=== PATIENT | female | born 2000 | race Caucasian/White ===

== ENCOUNTER 2022-11-06 14:23 | Emergency (ER) | payer BC, SELFPAY ==
[2022-11-06 14:26] VITALS: BP 112/79; PULSE 130; RESP 21; TEMP 36.4; O2SAT 99; BMI 21.1
--- NOTE | 2022-11-06 15:11 | ED_ITS ---
HPI - Nausea/Vomiting/Diarrhea General Chief complaint: Nausea/Vomiting Stated complaint: Food poisoning, vomiting Time Seen by Provider: 11/06/22 15:03 History of Present Illness HPI Narrative: This 22-year-old female comes in with report of vomiting and diarrhea that began this morning. She thinks that she ate something that was toxic in her meal last night which she ordered from [employer]. She did not have any symptoms after taking the pizza last night. Symptoms started this morning. Her boyfriend also has similar symptoms. She does not report any blood in the toilet. She has not had any fevers. She arrives with normal vital signs Septra pulse is increased. Related Data Home Medications Medication Instructions Recorded Confirmed escitalopram oxalate 5 mg tablet 15 mg PO QDAY 07/17/22 07/17/22 spironolactone 100 mg tablet 100 mg PO QDAY 07/17/22 07/17/22 tretinoin 0.05 % topical cream g topical 07/17/22 07/17/22 Previous Rx's Medication Instructions Recorded ondansetron 4 mg disintegrating 4 mg PO Q6H #20 tabs 11/06/22 tablet Allergies Allergy/AdvReac Type Severity Reaction Status Date / Time No Known Drug Allergies Allergy Verified 11/06/22 14:45 Review of Systems Status of ROS: Reports: 10 or more systems reviewed and unremarkable except as noted in History and below Narrative: Constitutional: No fevers, no weight gain or loss. Eyes: No discharge. No vision changes. HENT: No congestion, no sore throat, no ear pain. Cardiovascular: No chest pain, no palpitations. Respiratory: No shortness of breath, no wheezes, no cough. Gastrointestinal: Vomiting and diarrhea. Diffuse abdominal pain. Genitourinary: No dysuria, no hematuria. Musculoskeletal: Normal range of motion. Skin: No rashes, no pruritis. Neurological: No dizziness, weakness, sensory change, speech change. Endo/Heme/Allergies: No bruising or bleeding. No polydipsia. Pysch: no suicidality, no anxiety, no insomnia. All other systems reviewed and are negative. PFSH PFS Social History Smoking Status: Never smoker Exam Narrative: Exam Narrative: Constitutional: Well-developed, well-nourished, no acute distress. HEENT: Normocephalic, atraumatic. Neck: Normal range of motion. Nontender. Supple. Heart: Regular. No murmurs. Tachycardia. Intact distal pulses. Lungs: Clear to auscultation. No chest discomfort. No wheezes, rhonchi, or rales. Abdomen: Normal bowel sounds. Nontender. No rebound tenderness. Genitalia: Deferred. Back: No midline tenderness. Normal range of motion. Extremities: Normal range of motion. No injury. Skin: Intact. No rash. Warm. No erythema or pallor. Neurologic: No altered sensation. No weakness. Alert and oriented. Psychiatric: No suicidality. No anxiety or depression. No insomnia. Nursing notes and vitals signs are reviewed. Const: Vital Signs, click to edit/add: Vital Signs - 24 hr 11/06/22 14:26 Temperature 97.5 F L Pulse Rate [Pulse Oximeter] 130 H Respiratory Rate 21 Blood Pressure [Ri ght Upper Arm] 112/79 Pulse Oximetry 99 Oxygen Delivery Me thod Room Air Course Vital Signs Vital signs: Initial Vital Signs Temperature 97.5 F L 11/06/22 14:26 Temperature Source Oral 11/06/22 14:26 Pulse Rate 130 H 11/06/22 14:26 Pulse Rhythm 11/06/22 14:26 Pulse Strength 3+ Normal 11/06/22 14:26 Respiratory Rate 21 11/06/22 14:26 Blood Pressure 112/79 11/06/22 14:26 Blood Pressure Mean 90 11/06/22 14:26 Pulse Oximetry 99 11/06/22 14:26 Oxygen Delivery Method 11/06/22 14:26 Vital Signs Temperature 97.5 F L 11/06/22 14:26 Pulse Rate 130 H 11/06/22 14:26 Respiratory Rate 21 11/06/22 14:26 Blood Pressure 112/79 11/06/22 14:26 Pulse Oximetry 99 11/06/22 14:26 Oxygen Delivery Method 11/06/22 14:26 Temperature 97.5 F L 11/06/22 14:26 Pulse Rate 130 H 11/06/22 14:26 Respiratory Rate 21 11/06/22 14:26 Blood Pressure 112/79 11/06/22 14:26 Pulse Oximetry 99 11/06/22 14:26 Oxygen Delivery Method 11/06/22 14:26 MDM - Nausea/Vomiting/Diarrhea MDM Narrative Medical decision making narrative: This patient comes in with nausea, vomiting, and diarrhea that started this morning. She arrives with normal vital signs except for an increased heart rate. An IV was established where she received a L of normal saline and 4 mg of Zofran. This brought relief to her nausea and vomiting. She is feeling better. Lab results returned with reassuring findings. At the time of discharge the patient appears safe for outpatient management. The treatment plan is reviewed along with written and verbal return precautions. Reasons to return and the importance of close followup were also reviewed. Lab Data Labs: Lab Results 11/06/22 Range/Units 15:00 WBC 7.92 (4.50-11.00) K/uL RBC 4.92 (4.00-5.20) m/uL Hgb 12.9 (12.0-16.0) gm/dL Hct 39.0 (33.0-51.0) % MCV 79 L (80-100) fL MCH 26 (26-34) pg MCHC 33 (32-36) gm/dL RDW Coeff of Yadira 16.0 H (11.5-15.5) % Plt Count 310 (140-440) K/uL Neut % (Auto) 92.3 H (42.0-72.0) % Lymph % (Auto) 2.8 L (20-44) % [place] % (Auto) 4.2 (0.0-11.0) % Eos % (Auto) 0.5 (0.0-7.0) % Baso % (Auto) 0.1 (0.0-3.0) % Neut # (Auto) 7.30 H (1.7-7.0) K/uL Lymph # (Auto) 0.20 L (0.90-2.90) K/uL [place] # (Auto) 0.30 (0.00-0.90) K/UL Eos # (Auto) 0.04 (0.00-0.50) K/uL Baso # (Auto) 0.01 (0.00-0.30) K/uL Discharge Plan Discharge Clinical Impression: Gastroenteritis Patient Disposition: Home, Self-Care Condition: Improved Additional Instructions: Increase diet as tolerated. Use [id number] Imodium as needed and directed. Use prescription medicine called Zofran as needed and directed for nausea and vomiting. Follow up with MD or return if worsening. Prescriptions: New ondansetron 4 mg tablet,disintegrating 4 mg PO Q6H Qty: 20 0RF No Action tretinoin 0.05 % cream topical Label Comments: APPLY PEA SIZED AMOUNT TO FACE NIGHTLY spironolactone 100 mg tablet 100 mg PO QDAY Label Comments: TAKE 1 TABLET BY MOUTH EVERY DAY escitalopram oxalate 5 mg tablet 15 mg PO QDAY Follow Up/Referrals: Provider,Not a Local [Primary Care Provider] - Stand Alone Forms: [employer] Info Instructions
[2022-11-06] MEDS: ONDANSETRON 2 MG/ML inj 4 MG IVP (15:36)
[2022-11-06] MEDS: 0.9 % SODIUM CHLORIDE 1000 ml 1,000 ML IV (15:36)
[2022-11-06 15:46] LABS: Basophils Absolute Auto 0.01 K/uL (0.00-0.30); Basophils Percent Auto 0.1 % (0.0-3.0); Eosinophils Absolute Auto 0.04 K/uL (0.00-0.50); Eosinophils Percent Auto 0.5 % (0.0-7.0); Hemoglobin* 12.9 gm/dL (12.0-16.0); Immature Granulocytes Abs Auto 0.01 K/uL (0.00-0.30); Immature Granulocytes Pct Auto 0.1 %; Lymphocytes Percent Auto 2.8 % (20-44); Mean Corpuscular HGB Conc 33 gm/dL (32-36); Mean Corpuscular Hemoglobin 26 pg (26-34); Mean Corpuscular Volume 79 fL (80-100); Monocytes Percent Auto 4.2 % (0.0-11.0); Neutrophils Percent Auto 92.3 % (42.0-72.0); Platelet Count* 310 K/uL (140-440); Red Blood Count 4.92 m/uL (4.00-5.20); White Blood Count* 7.92 K/uL (4.50-11.00)
[2022-11-06 15:47] LABS: Slide Review Reflex No
[2022-11-06 16:04] LABS: Chloride* 109 mmol/L (96-114)
[2022-11-06 16:05] LABS: Potassium* 4.1 mmol/L (3.6-5.1); Sodium* 141 mmol/L (135-149)
[2022-11-06 16:07] LABS: Carbon Dioxide* 23 mmol/L (20-32); Creatinine* 0.6 mg/dL (0.5-1.5); Est. Creatinine Clearance* 144.58; Estimated Glomerular Filt Rate 132 ml/min
[2022-11-06 16:08] LABS: Blood Urea Nitrogen* 14 mg/dL (5-24); Calcium* 9.3 mg/dL (8.4-10.6); Glucose* 93 mg/dL (60-115)
[2022-11-06 16:35] VITALS: BP 111/67; PULSE 100; RESP 20; O2SAT 96
== END 2022-11-06 16:35 | disposition home or self-care (01) ==
PROVIDERS: Emergency Provider Emergency Medicine Emergency Medical Services
DX: K52.9 Noninfective gastroenteritis and colitis, unspecified (principal)
CPT/HCPCS: 36415; 80048; 85025; 96360; 96361; 96374; 99284; J2405; J7030